=== PATIENT | male | born 1985 | race Caucasian/White ===

== ENCOUNTER 2017-01-12 18:57 | Emergency (ER) | payer SELFPAY ==
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
== END 2017-01-12 19:20 | disposition home or self-care (01) ==
LOC: UCCORT 18:57
DX: M25.572 Pain in left ankle and joints of left foot (principal); V29.9XXA Motorcycle rider (driver) (passenger) injured in unspecified traffic accident, initial encounter
CPT/HCPCS: 99202; G0463